=== PATIENT | female | born 1955 | race Asian ===

== ENCOUNTER 2017-04-17 02:11 | Emergency (ER) | payer BC ==
[2017-04-17 04:00] LABS: BASOPHIL % 0.1 % (0-2); PLATELET COUNT 187 x10^3mcL (130-400); RED CELL DISTRIBUTION WIDTH 13.1 % (11.5-14.5)
[2017-04-17 04:10] LABS: CALCIUM 10.2 mg/dL (8.5-10.1); CARBON DIOXIDE 25.9 mmol/L (21-32); CHLORIDE SERUM 104 mmol/L (98-107); CREATININE SERUM 0.7 mg/dL (0.6-1.0); GFR1 > 60 mL/min; GLUCOSE SERUM 141 mg/dL (74-106); POTASSIUM SERUM 3.4 mmol/L (3.5-5.1); SODIUM SERUM 140 mmol/L (136-145)
[2017-04-17 04:14] LABS: ALBUMIN 3.9 g/dL (3.4-5.0); ALKALINE PHOSPHATASE 83 U/L (46-116); ALT/SGPT 35 U/L (14-59); AST/SGOT 20 U/L (15-37); BILIRUBIN TOTAL 0.84 mg/dL (0.20-1.00); TOTAL PROTEIN, SERUM 7.9 g/dL (6.4-8.2)
[2017-04-17 07:28] LABS: MAGNESIUM 2.2 mg/dL (1.8-2.4); PHOSPHOROUS 1.7 mg/dL (2.5-4.9)
[2017-04-17 07:39] LABS: FREE T4 1.18 ng/dL (0.76-1.46); FREE THYROXINE INDEX 3.2 ug/dL (1.4-4.5); T4(THYROXINE) 10.1 ug/dL (4.7-13.3)
[2017-04-17 08:47] LABS: T3 TOTAL 1.49 ng/mL
[2017-04-17 09:04] VITALS: BP 121/73
== END 2017-04-17 09:04 | disposition left against medical advice (07) ==
LOC: ED 02:11 → DU 05:31 → ED 05:31
PROVIDERS: Emergency Medicine; Student in an Organized Health Care Education/Training Program
DX: J18.9 Pneumonia, unspecified organism (principal); I45.81 Long QT syndrome; Z90.49 Acquired absence of other specified parts of digestive tract
CPT/HCPCS: 83880; 84439; 87804; J3475; J3490